=== PATIENT | male | born 1965 | race Caucasian/White ===

== ENCOUNTER 2018-05-28 19:02 | Emergency (ER) | payer BC ==
[2018-05-28] MEDS ORDERED: MIDAZOLAM 1 MG/ML 5 ML VIAL IV STA (19:06)
[2018-05-28 19:17] LABS: Glucose,Whole Blood 145 mg/dL (75-99)
[2018-05-28] MEDS ORDERED: LORazepam 2 MG/ML INJ IV PRN ×2 (19:17)
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
[2018-05-28 19:24] LABS: Basophils # (A) 0.1 k/uL (0-0.2); Basophils % (A) 1 %; Eosinophils # (A) 0.1 k/uL (0-0.7); Eosinophils % (A) 1 %; HCT 44.2 % (39.0-53.0); HGB 14.6 gm/dL (13.0-17.5); Lymphocytes # (A) 2.8 k/uL (1.0-4.8); Lymphocytes % (A) 27 %; MCH 30.9 pg (25.0-35.0); MCV 93.6 fL (80.0-100.0); Monocytes # (A) 0.7 k/uL (0-1.0); Monocytes % (A) 7 %; Neutrophils # (A) 6.4 k/uL (1.3-7.7); Neutrophils % (A) 61 %; Platelet Count 268 k/uL (150-450); RBC 4.73 m/uL (4.30-5.90); RDW 12.5 % (11.5-15.5); WBC 10.5 k/uL (3.8-10.6)
[2018-05-28] MEDS ORDERED: PROPOFOL 1,000 MG in EMPTY BAG 1 BAG IV SCH (19:30)
[2018-05-28] MEDS ORDERED: DIPH,PERTUS(ACELL)TETVAC-LF 0.5 ML VIAL IM ONE (19:33)
[2018-05-28 19:35] LABS: Creatine Kinase 229 U/L (55-170)
[2018-05-28 19:36] LABS: Albumin 4.2 g/dL (3.5-5.0); Calcium 8.9 mg/dL (8.4-10.2); Potassium 4.4 mmol/L (3.5-5.1); Total Bilirubin 0.4 mg/dL (0.2-1.3); Total Protein 6.8 g/dL (6.3-8.2)
[2018-05-28 19:48] LABS: Creatine Kinase MB 1.5 ng/mL (0.0-2.4); Troponin I <0.012 ng/mL (0.000-0.034)
[2018-05-28] MEDS ORDERED: PROPOFOL 1,000 MG in EMPTY BAG 1 BAG IV ONE (20:01)
[2018-05-28 20:07] LABS: INR 1.1 (<1.2); Partial Thromboplastin Time 20.2 sec (22.0-30.0); Prothrombin Time 10.3 sec (9.0-12.0)
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
[2018-05-28 20:24] VITALS: RESP 16
[2018-05-28 20:26] LABS: Appearance,Urine Clear (Clear); Bilirubin,Urine Negative (Negative); Blood,Urine Negative (Negative); Color,Urine Colorless; Glucose,Urine (UA) Negative (Negative); Ketones,Urine Negative (Negative); Leukocyte Esterase,Urine Negative (Negative); Nitrite,Urine Negative (Negative); Protein,Urine Negative (Negative); Specific Gravity,Urine 1.002 (1.001-1.035); Urobilinogen,Urine <2.0 mg/dL (<2.0)
[2018-05-28 20:28] VITALS: TEMP 97.4
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
[2018-05-28] MEDS ORDERED: SUCCINYLCHOLINE CHLORIDE VIAL 200 MG/10 ML VIAL IV STA ×2 (20:30)
[2018-05-28] MEDS ORDERED: SODIUM CHLORIDE 0.9% 1,000 ML IV STA (20:34)
[2018-05-28 20:40] LABS: Amphetamine Screen,Urine Not Detected (NotDetected); Barbiturate Screen,Urine Not Detected (NotDetected); Benzodiazepines Screen,Urine Not Detected (NotDetected); Cocaine Screen,Urine Detected (NotDetected); Methadone Screen, Urine Not Detected (NotDetected); Opiate Screen,Urine Not Detected (NotDetected); Oxycodone Screen, Urine Not Detected (NotDetected); Phencyclidine Screen,Urine Not Detected (NotDetected); Tricyclic Antidepressant,Urine Not Detected (NotDetected); Urn Cannabinoid Scrn Not Detected (NotDetected)
[2018-05-29 05:11] VITALS: BP 137/73; PULSE 94
== END 2018-05-28 20:38 | disposition other institution (70) ==
LOC: EC 19:02
DX: S01.80XA Unspecified open wound of other part of head, initial encounter (principal); R40.2112 Coma scale, eyes open, never, at arrival to emergency department; R40.2332 Coma scale, best motor response, abnormal flexion, at arrival to emergency department; R40.2212 Coma scale, best verbal response, none, at arrival to emergency department; Z23 Encounter for immunization
CPT/HCPCS: 99291; 31500; 96360; 90471; 36415; 94002; 86900; 86901; 80053; 82150; 82550; 82553; 83605; 83690; 84484; 85025; 85610; 85730; 86850; 86920; 81003; 80306; 80320; 72170; 71045; 72125; 70450; 90715; P9016; J0330; J2250; J2704